=== PATIENT | female | born 1940 | race Caucasian/White ===

== ENCOUNTER 2017-07-03 20:09 | Emergency (ER) | payer MEDICARE, OTHER ==
[2017-07-03 20:13] VITALS: BP 134/60; PULSE 75; RESP 20; TEMP 98.1; O2SAT 98
--- NOTE | 2017-07-03 20:26 | PD ---
HPI Chief Complaint: Laceration/Skin Injury Time Seen by Provider: 20:18 Travel History International Travel<30 days: No Contact w/Intl Traveler<30days: No Traveled to known affect area: No History of Present Illness HPI 76-year-old female that presents to the ED for evaluation of laceration to the head. Per patient she was moving stuff out of one of the houses that she has and when she was grabbing something she accidentally brace her head on and off cold air conditioning that is made of metal. Per patient she not hit her head otherwise or loss consciousness. Per patient she was mainly brace. She suffered a cut and she knew she was bleeding but she didn't really think much of it. Per patient it wasn't until she wash her hair that she noted that she continued to bleed so she decided to come here. She takes no blood thinners. She is unsure of her last tetanus shot. Per patient her pain is 2 out of 10 if anything and only with touch. Denies any blurry vision or double vision. No nausea or vomiting. No other medical issues. [facility] Social History Tobacco Use: No Allergies-Medications (Allergen,Severity, Reaction): Coded Allergies: No Known Allergies (Verified Allergy, Unknown, 07/03/17) Review of Systems Except as stated in HPI: all other systems reviewed are Neg Physical Exam Narrative GENERAL: SKIN: Warm and dry. Patient has a superficial laceration which is about 7 centimeters on the scalp. Very well approximated. Some bleeding noted. HEAD: Atraumatic. Normocephalic. EYES: Pupils equal and round. No scleral icterus. No injection or drainage. ENT: No nasal bleeding or discharge. Mucous membranes pink and moist. Tongue is midline. No uvula deviation. NECK: Trachea midline. No JVD. CARDIOVASCULAR: Regular rate and rhythm. RESPIRATORY: No accessory muscle use. Clear to auscultation. Breath sounds equal bilaterally. GASTROINTESTINAL: Abdomen soft, non-tender, nondistended. Hepatic and splenic margins not palpable. MUSCULOSKELETAL: Extremities without clubbing, cyanosis, or edema. No obvious deformities. Full range of motion of the upper and lower extremities bilaterally. 2+ pulses bilaterally. NEUROLOGICAL: Awake and alert. No obvious cranial nerve deficits. Motor grossly within normal limits. Five out of 5 muscle strength in the arms and legs. Normal speech. PSYCHIATRIC: Appropriate mood and affect; insight and judgment normal. Data Data Last Documented VS Vital Signs Date Time Temp Pulse Resp B/P (MAP) Pulse Ox O2 Delivery O2 Flow Rate FiO2 07/03/17 20:13 98.1 75 20 134/60 (84) 98 Orders Orders Lidocaine 1% Inj (50 Ml) (Xylocaine 1% I (07/03/17 20:30) Tetanus/Diphtheria Tox Adult (Tetanus/Di (07/03/17 20:30) MDM Medical Decision Making Medical Screen Exam Complete: Yes Emergency Medical Condition: Yes Medical Record Reviewed: Yes Differential Diagnosis Laceration versus head injury versus abrasion Narrative Course 76-year-old female that presents to the ED for evaluation laceration to the head. Patient was properly examined and was found to have signs and symptoms consistent with superficial laceration. I recommend stapling and tetanus booster. Patient agrees with this. After explaining procedure to the patient and she agreed to it laceration was depressed in procedure note. Patient was told to get alexandra removed in 7 days. Close follow with PCP. Wound care was endorsed. See ED if worsening symptoms. Procedures Procedure Narrative LACERATION LOCATION: right temporal head LENGTH: 7 cm NUMBER OF STITCHES/ALEXANDRA: 15 alexandra REPAIR: The area of the laceration was prepped with Betadine and sterilely draped. The laceration was infiltrated with 1% Xylocaine. The wound was copiously irrigated and explored without evidence of foreign body, tendon injury or neurovascular injury. The wound was closed using sterile stapler. This was a 1 layer repair. A sterile dressing was applied. The patient was advised to keep the dressing clean and dry. Patient tolerated the procedure well. Diagnosis Primary Impression: Laceration of head Qualified Codes: S01.01XA - Laceration without foreign body of scalp, initial encounter Patient Instructions: General Instructions Additional Instructions: Wound care daily with soap and water. You can apply bandaid if needed. Neosporyn or OTC antibiotic ointment to area as needed twice a day for at least 2 weeks to help with scarring and prevent infection. Meoderma OTC for scarring if needed. Avoid sun exposure for 2 months as the sun could make scar darker and more noticeable. Get sutures removed in 7 days. See ED if worst. Med/Other Pt SpecificInfo: No Change to Meds Disposition: 01 DISCHARGE HOME Condition: Stable Haim Santamaria Jul 03, 2017 20:25
[2017-07-03] MEDS ORDERED: SIMV40TA PO (20:29)
[2017-07-03] MEDS ORDERED: LISI-515 PO (20:29)
[2017-07-03] MEDS ORDERED: MELO-1 PO (20:29)
[2017-07-03] MEDS ORDERED: LIDOCAINE HCL 1% 50 ML VIAL INFIL ONE (20:30)
[2017-07-03] MEDS ORDERED: TETANUS/DIPHTHERIA TOXOID ADULT 0.5 ML VIAL IM ONE (20:30)
== END 2017-07-03 21:07 | disposition home or self-care (01) ==
LOC: PHED 20:09
DX: S01.01XA Laceration without foreign body of scalp, initial encounter (principal); W22.8XXA Striking against or struck by other objects, initial encounter
CPT/HCPCS: 12002; 90471; 90714

== ENCOUNTER 2017-07-12 10:52 | Emergency (ER) | payer OTHER ==
[~2017-07-12 10:52] MED LIST: LISI-515 PO; MELO-1 PO; SIMV40TA PO
[2017-07-12 10:56] VITALS: BP 120/59; PULSE 81; RESP 15; TEMP 97.8; O2SAT 95
--- NOTE | 2017-07-12 11:16 | PD ---
HPI Chief Complaint: Wound/Suture/Staple Re-Check Time Seen by Provider: 11:04 Travel History International Travel<30 days: No Contact w/Intl Traveler<30days: No Traveled to known affect area: No History of Present Illness HPI 76-year-old female presents to the emergency room and for staple removal. Patient had 15 alexandra placed in her right scalp 9 days ago after hitting her head on a sharp metal object. No other injuries or loss of consciousness. Patient reports no worsening pain, drainage, foul smell, or fevers. She has been keeping it clean and applying ointment daily. PFSH Past Medical History Arthritis: Yes Diminished Hearing: No Hypertension: Yes Tetanus Vaccination: < 5 Years Influenza Vaccination: No Menopausal: Yes Past Surgical History Joint Replacement: Yes (rt knee replacement) Social History Alcohol Use: Yes (social drinker) Tobacco Use: No Substance Use: No Allergies-Medications (Allergen,Severity, Reaction): Coded Allergies: No Known Allergies (Verified Allergy, Unknown, 07/12/17) Reported Meds & Prescriptions Reported Meds & Active Scripts Active Reported Meloxicam 15 Mg Tab 15 Mg PO DAILY Lisinopril 20 Mg Tab 20 Mg PO DAILY Simvastatin 40 Mg Tab 40 Mg PO HS Review of Systems Except as stated in HPI: all other systems reviewed are Neg Physical Exam Narrative GENERAL: Well-nourished, well-developed female in no acute distress. Afebrile. Ambulatory. SKIN: Focused skin assessment warm/dry. There is an 8 cm well approximated, healed scab on the top of the scalp with 14 intact alexandra. No impetiginization. No drainage. No erythema. HEAD: Normocephalic. EYES: No scleral icterus. No injection or drainage. NECK: Supple, trachea midline. No JVD or lymphadenopathy. CARDIOVASCULAR: Regular rate and rhythm without murmurs, gallops, or rubs. RESPIRATORY: Breath sounds equal bilaterally. No accessory muscle use. NEUROLOGICAL: Awake and alert. Cranial nerves II through XII intact. Motor and sensory grossly within normal limits. Five out of 5 muscle strength in all muscle groups. Normal speech. Data Data Last Documented VS Vital Signs Date Time Temp Pulse Resp B/P (MAP) Pulse Ox O2 Delivery O2 Flow Rate FiO2 07/12/17 10:56 97.8 81 15 120/59 (79) 95 MDM Medical Decision Making Medical Screen Exam Complete: Yes Emergency Medical Condition: Yes Medical Record Reviewed: Yes Differential Diagnosis staple removal, laceration, contusion, abrasion Narrative Course 76-year-old female presents to the emergency room for staple removal. Patient had 15 alexandra placed in her head 9 days ago. Physical exam reveals well- healed scabbed laceration to the top of the scalp with 14 intact alexandra. No evidence of infection. Alexandra were removed without difficulty. Patient discharged with wound care instructions and told to follow up with a primary care physician or return for worsening symptoms. She understands and agrees to plan. Diagnosis Primary Impression: Removal of alexandra Referrals: Primary Care Physician Additional Instructions: Keep wound clean and dry. Apply triple antibiotic ointment daily. Disposition: 01 DISCHARGE HOME Condition: Stable Thu Vu Jul 12, 2017 11:16
== END 2017-07-12 11:29 | disposition home or self-care (01) ==
LOC: PHEFT 10:52
DX: Z48.02 Encounter for removal of sutures (principal)
CPT/HCPCS: 99281